=== PATIENT | male | born 1985 | race Caucasian/White ===

== ENCOUNTER 2021-02-24 17:37 | Emergency (ER) | payer OTHER, SELFPAY ==
[2021-02-24 17:40] VITALS: BP 156/97; PULSE 90; RESP 17; TEMP 36.9; O2SAT 97; BMI 26.3
--- NOTE | 2021-02-24 18:05 | EKG12_ITS ---
Test Reason : CP Blood Pressure : / mmHG Vent. Rate : 077 BPM Atrial Rate : 077 BPM P-R Int : 148 ms QRS Dur : 080 ms QT Int : 366 ms P-R-T Axes : 052 071 045 degrees QTc Int : 414 ms Normal sinus rhythm Normal ECG Confirmed by REGGIE UNDERWOOD, ATILIO ([id number]), movie editor LAVERN WRIGHT ([id number]) on 02/26/2021 10:56:29 AM Referred By: WOLF Confirmed By:ATILIO PAREDES MD
[2021-02-24 18:14] VITALS: O2SAT 100
--- NOTE | 2021-02-24 18:17 | ED.VIS.CHEST ---
HPI History of Present Illness Chief Complaint: Chest Pain Informant: patient Onset/Context/Timing Onset: Weeks (1-2) Activity at onset: sudden Timing: Continuous Quality: Positive for Burning Location: Left Parasternal and - (Epigastric area) Worsened By: - (Sitting) Relieved By: - (Standing) Associated Symptoms: Positive for Nausea, Diaphoresis, Lightheadedness, Acid Reflux and Palpitations; Negative for Vomiting, Dyspnea, Cough and Fever Narrative Narrative: Patient presents with chest pain that has been constant for the past 1 to 2 weeks. Patient was seen twice in the emergency department in [place] for this. Patient was started on hydrochlorothiazide. Patient followed up with his primary care physician who added lisinopril to the hydrochlorothiazide. Patient states this helped for a couple days and then he noticed that his blood pressure had started to increase again and he started having more chest pain. Patient states that it is over the left parasternal area and epigastric area. Patient states it is worse with sitting but better with standing. Patient admits to some nausea and occasional diaphoresis. Patient denies any vomiting. Patient denies any shortness of breath or cough. Patient admits to some mild lightheadedness. Patient also admits to some palpitations. Patient also admits to some reflux symptoms. CVD Risk Factors: Positive for Hypertension; Negative for Diabetes, Hypercholesterolemia, Family History 1' </=55 and Smoking PE Risk Factors: Negative for Recent Travel/Surgery, Recent Immobilization, Prior DVT or PE, Cancer and OCP + Smoking + >/=35 PFSH PFSH Medical History (Updated 02/24/21 @ 20:[address] Rudy Aviles DO) Hypertension Home Medications hydrocodone-acetaminophen 1 tab PO Q6H PRN PRN 3 Days #10 tablet 02/24/21 [Rx Last Taken Unknown] lisinopril-hydrochlorothiazide 1 tab PO DAILY 02/24/21 [History Last Taken Unknown] Allergy/AdvReac Type Severity Reaction Status Date / Time No Known Allergies Allergy Verified 02/24/21 17:39 Family History no significant family his no significant family history Surgical History no surgical history no surgical history Social History Smoking Status: Never smoker ROS ROS ED Constitutional Constitutional ED: Denies chills or fever(s) Eyes Eyes: Reports blurry vision; Denies diplopia ENT ENT ED: Denies rhinorrhea or sore throat Cardiovascular Cardiovascular: Reports chest pain, palpitations and racing heartbeat Respiratory/Chest Respiratory/Chest: Reports dyspnea; Denies cough Gastrointestinal Gastrointestinal: Reports nausea; Denies abdominal pain or vomiting Genitourinary Genitourinary ED: Denies dysuria or hematuria Musculoskeletal Musculoskeletal: Reports back pain; Denies neck pain Integumentary Denies abscess or rash Neurologic Neurologic: Denies headache(s) or weakness Allergic/Immunologic Allergic/Immunologic ED: Denies mouth swelling or urticaria EXAM Physical Exam Const Vital Signs: 02/24/21 17:40 02/24/21 17:54 02/24/21 18:14 Temperature 98.4 F Temperature Source Temporal Pulse Rate 90 Respiratory Rate 17 Respiratory Effort Normal Blood Pressure 156/97 H Blood Pressure Mean 116 Pulse Ox 97 100 Oxygen Delivery Method Room Air Room Air 02/24/21 18:36 02/24/21 20:06 Temperature Temperature Source Pulse Rate 81 64 Respiratory Rate 17 16 Respiratory Effort Blood Pressure 136/89 H 130/63 H Blood Pressure Mean 104 85 Pulse Ox 99 99 Oxygen Delivery Method Room Air Room Air Positive well nourished and well developed General Appearance ED: well developed HEENT normocephalic and atraumatic Eyes PERRL and EOMs intact bilaterally Neck supple and no JVD Chest Wall palpation of chest normal Resp normal respiratory effort and clear to auscultation bilaterally Effort and Inspection: Negative for respiratory distress Cardio regular rate, regular rhythm and no murmurs GI normal to inspection, nondistended, normoactive bowel sounds, soft to palpation, non-tender and non-distended Extremity normal to inspection General Extremety ED: Negative for edema or tenderness General Extremity: Negative for edema Neuro oriented x3, CN's II-XII intact bilaterally and no sensory deficits noted Sensorium / Orientation: awake and alert Motor Exam: strength 5/5 throughout Psych mental status grossly normal Heart Score History: Slightly/Non-Suspicious ECG: Normal Age: </= 45 years Risk Factors: 1 or 2 Risk Factors Troponin: </= Normal Limit Score: 1 MDM MDM MDM Narrative Medical decision making narrative: Patient was given aspirin here. EKG was obtained. On my interpretation, it showed a normal sinus rhythm with a rate of 77. [place] interval, QRS interval, and QTc intervals were all normal. [place] was normal. There are no acute ST or T wave changes. Portable 1 view chest x-ray was obtained. On my interpretation, lung currie are clear. There is normal cardiac silhouette. Bony thorax is normal. There is no acute process noted. Radiologist also interpreted the x-ray and agrees. CBC and basic metabolic profile were obtained and were within normal limits. D-dimer was normal. Initial high-sensitivity troponin was normal. 2-hour repeat high-sensitivity troponin was also normal. Patient was given a prescription for a short course of [place]. Patient was instructed to follow-up with his primary care physician for further evaluation. Patient understood and was agreeable with the plan. All questions were answered. Lab Data Attestation: I reviewed the patient's lab results. Labs: Laboratory Results - last 24 hr 02/24/21 02/24/21 02/24/21 18:15 18:15 18:15 WBC 9.8 RBC 5.13 Hgb 16.4 Hct 46.3 MCV 90.3 MCH 32.0 MCHC 35.4 RDW Std Deviation 39.5 RDW Coeff of Marcela 12.0 Plt Count 261 MPV 9.3 Immature Gran % (Auto) 0.400 Neut % (Auto) 66.3 Lymph % (Auto) 21.7 Sherman % (Auto) 7.4 Eos % (Auto) 3.7 Baso % (Auto) 0.5 Absolute Neuts (auto) 6.5 Absolute Lymphs (auto) 2.12 Nucleated RBC % 0 D-Dimer Quant (PE/DVT) <= 0.27 Sodium 136 Potassium 3.9 Chloride 98 Carbon Dioxide 32.0 Anion Gap 6 BUN 27 H Creatinine 1.05 Estim Creat Clear Calc 105.72 Est GFR (MDRD) Af Amer 102 Est GFR (MDRD) Non-Af 84 BUN/Creatinine Ratio 25.7 H Glucose 86 Calcium 9.3 Troponin I High Sens 11 02/24/21 20:01 WBC RBC Hgb Hct MCV MCH MCHC RDW Std Deviation RDW Coeff of Marcela Plt Count MPV Immature Gran % (Auto) Neut % (Auto) Lymph % (Auto) Sherman % (Auto) Eos % (Auto) Baso % (Auto) Absolute Neuts (auto) Absolute Lymphs (auto) Nucleated RBC % D-Dimer Quant (PE/DVT) Sodium Potassium Chloride Carbon Dioxide Anion Gap BUN Creatinine Estim Creat Clear Calc Est GFR (MDRD) Af Amer Est GFR (MDRD) Non-Af BUN/Creatinine Ratio Glucose Calcium Troponin I High Sens 12 Radiography Chest X-Ray - ED: 1 View, Read by ED Physician, Read by Radiologist and Normal Diagnostic Testing: Clinical Impression(s) from Imaging Studies Chest X-Ray 02/24/21 18:25 IMPRESSION: No acute radiographic abnormalities. Electronically Signed: Donavon Mackey MD at 19:08 EST Tel , Service support , EKG Initial EKG: Attestation: I personally reviewed and interpreted this EKG as follows: Interpretation: Sinus Rhythm (77) and No Acute Injury Pattern Prior EKG tracings: not available for review Discharge Plan Triage Chief Complaint: Chest Pain ED Provider: Rudy Aviles Dx/Rx/DC Orders Clinical Impression: Chest pain of unknown etiology Instructions: ED Chest Pain, Uncertain Cause Prescriptions: New hydrocodone-acetaminophen [hydrocodone-acetaminophen] 1 TABLET tablet 1 tab PO Q6H PRN PRN (Reason: Pain) 3 Days Qty: 10 RF: 0 No Action lisinopril-hydrochlorothiazide 20-12.5 mg tablet 1 tab PO DAILY RF: 0 Primary Care Provider: Katja Armijo NP Referrals: Katja Armijo NP, [employer] [facility] [Primary Care Provider] - 3-5 Days Disposition Disposition: Home, Self Care
[2021-02-24] MEDS: Aspirin 81 MG TAB.CHEW 324 MG PO (18:18)
[2021-02-24 18:25] LABS: Absolute Lymphocyte Count 2.12 X10^3/uL (0.83-4.51); Absolute Neutrophil Count 6.5 X10^3/uL (2.0-7.7); Basophil# 0.05 X10^3/uL; Basophil% 0.5 % (0-1); Eosinophil# 0.36 X10^3/uL; Eosinophils% 3.7 % (0-5); Hematocrit 46.3 % (40-54); Hemoglobin 16.4 g/dL (13.0-16.5); Lymphocyte # 2.12 X10^3/ul (0.83-4.51); Lymphocyte % 21.7 % (19-41); Mean Corp Hgb Conc 35.4 g/dL (32-36); Mean Corpuscular Volume 90.3 fL (80-94); Mean Platelet Vol. 9.3 fl (6.2-12.0); Monocyte# 0.72 X10^3/uL; Monocyte% 7.4 % (0-10); NRBC Flagged by Analyzer 0 % (0-5); Neutrophil # 6.49 X10^3/uL (2.7-7.7); Neutrophil % 66.3 % (47-70); Platelet Count 261 K/mm3 (150-450); RBC Distribution Width SD 39.5 fl (35.1-43.9); Red Blood Count 5.13 M/mm3 (4.6-6.2); White Blood Count 9.8 K/mm3 (4.4-11.0)
--- NOTE | 2021-02-24 18:25 | RAD_ITS ---
INDICATION: chest pain EXAMINATION/TECHNIQUE: X-RAY - XR Chest 1 View COMPARISON: None. FINDINGS: The lungs are clear. The cardiomediastinal silhouette is unremarkable. No pleural effusion or pneumothorax. No acute osseous abnormalities. RAD/Chest 1 View (Portable) IMPRESSION: No acute radiographic abnormalities. Electronically Signed: Donavon Mackey MD at 19:08 EST Tel , Service support ,
[2021-02-24 18:30] LABS: D-Dimer Quantitative (DVT/PE) <= 0.27 FEU/ug/m (0.27-0.49)
[2021-02-24] MEDS: Mag Hydrox/Al Hydrox/Simeth 30 ML UDC PO (18:33)
[2021-02-24 18:36] VITALS: BP 136/89; PULSE 81; RESP 17; O2SAT 99
[2021-02-24 18:47] LABS: Anion Gap 6 (5-15); BUN 27 mg/dL (7-18); BUN/Creat Ratio 25.7 RATIO (10-20); Calcium,Total 9.3 mg/dL (8.5-10.1); Chloride 98 mmol/L (98-107); Creatinine, Serum 1.05 mg/dL (0.70-1.30); EST Glomerular Filtration Rate 84 mL/min (>60); Est Glom Filt Rate - Afr Amer 102 mL/min (>60); Estimated Creatinine Clearance 105.72 ml/min; Glucose 86 mg/dL (74-106); Potassium 3.9 mmol/L (3.5-5.1); Sodium Level 136 mmol/L (136-145); Troponin-I HS 11 pg/mL (3.0-78.0)
[2021-02-24 20:06] VITALS: BP 130/63; PULSE 64; RESP 16; O2SAT 99
[2021-02-24 20:28] LABS: Troponin-I HS 12 pg/mL (3.0-78.0)
[2021-02-24 20:57] VITALS: BP 129/86; PULSE 69; RESP 15; O2SAT 98
== END 2021-02-24 20:58 | disposition home or self-care (01) ==
PROVIDERS: Emergency Provider Emergency Medicine; PCP Nurse Practitioner Family; Visit Provider Emergency Medicine
DX: R07.9 Chest pain, unspecified (principal); I10 Essential (primary) hypertension; Z79.899 Other long term (current) drug therapy
CPT/HCPCS: 71045; 80048; 84484; 85025; 85379; 93005; 99284; A4216

== ENCOUNTER 2022-05-03 09:47 | Emergency (ER) | payer OTHER, SELFPAY ==
[2022-05-03 09:49] VITALS: BP 197/103; PULSE 75; RESP 14; TEMP 36.6; O2SAT 99; BMI 27.0
--- NOTE | 2022-05-03 10:07 | US_ITS ---
STUDY: SCROTUM ULTRASOUND REASON FOR EXAM: Male, 36 years old. Left testicular pain and swelling. TECHNIQUE: Ultrasound evaluation of the scrotum was performed with color Doppler and static hunt-scale imaging. COMPARISON: None. FINDINGS: RIGHT TESTICLE INTRATESTICULAR: There is a normal size of the right testicle. The right testicle measures 4.6 cm x 2.6 cm x 2.7 cm. There is a homogenous echotexture. There is normal arterial and normal venous vascularity. There is no demonstrated right testicular mass or cyst. Scattered microcalcifications are seen in the right testicle. EXTRATESTICULAR: The epididymis is normal in size. The epididymis head measures 0.9 cm x 1.1 cm x 0.7 cm. There is normal vascularity of the epididymis. There is no demonstrated epididymal cystic structure. There is a small hydrocele. There is no demonstrated varicocele. There is no demonstrated extratesticular mass or cyst. LEFT TESTICLE INTRATESTICULAR: There is a normal size of the left testicle. The left testicle measures 4.5 cm x 2.6 x 3 cm. There is a homogenous echotexture. There is normal arterial and normal venous vascularity. There is no demonstrated left testicular mass or cyst. EXTRATESTICULAR: The epididymis is normal in size. The epididymis head measures 1 cm x 1.2 cm x 1.0 cm. There is normal vascularity of the epididymis. There is no demonstrated epididymal cystic structure. There is no demonstrated hydrocele. There are prominent extratesticular veins consistent with a varicocele. There is no demonstrated extratesticular mass or cyst. Microcalcifications are seen in the superior aspect of the left testicle. US/Testicular with Arterial Flow IMPRESSION: Small right hydrocele. Small left varicocele. Microcalcifications are seen in both testicles. Electronically Signed: John Oreilly MD at 12:11 EDT ,
[2022-05-03 10:44] LABS: Bacteria 0 SEEN /hpf (None Seen); Mucous, Urine 0 SEEN /hpf (<or=2+); Red Blood Cells-Urine 0 SEEN /hpf (0-5); Squamous Epithelial Cells - UA 0 SEEN /hpf (0-5); White Blood Cells 0 SEEN /hpf (0-5)
[2022-05-03 10:46] LABS: Color, Urine Yellow (Yellow); Glucose, Dipstick Normal (Normal); Ketone-Dipstick Negative (Negative); Leukocyte Esterase-Dipstick Negative /ul (Negative); Nitrite-Dipstick Positive (Negative); Occult Blood-Urine Negative /ul (Negative); Protein-Dipstick Negative (Negative); Specific Gravity, Urine 1.005 (1.002-1.030); Urine Clarity Clear (Clear); Urine Urobilinogen 1 mg/dl (Normal)
[2022-05-03 10:47] LABS: Urine Bilirubin Dipstick 1 mg/dL (Negative)
--- NOTE | 2022-05-03 10:51 | EX.ED.GUMALE ---
HPI History of Present Illness Chief Complaint: Male Pain/Injury Informant: patient Narrative Narrative: Patient is a 36-year-old male that denies any significant past medical history besides of chronic back pain presenting with worsening scrotal swelling and pain. Patient states he had some mild dysuria for the past month and some mild intermittent discomfort that is been pretty nonspecific. He denies any blood in his urine. He saw his primary care doctor couple days ago and was prescribed Pyridium. Told that his urine looks like he is dehydrated. Over the past 2 days he is now had increased left testicular swelling and pain. He did take ibuprofen for his pain prior to arrival. Denies any associated rash. Denies any new sexual partners. States he is in monogamous relationship with his spouse and is not concerned for STIs. Denies any abdominal pain, nausea, vomiting or any other symptoms. No other complaints at this time. [facility] Medical History Hypertension Testicular pain Home Medications hydrocodone-acetaminophen 5-325mg 5mg-325mg 1 tab PO Q6H PRN PRN Pain 3 days #10 TABLETS 02/24/21 [Rx Last Taken Unknown] lisinopril 20 mg-hydrochlorothiazide 12.5 mg tablet 1 tab PO DAILY 02/24/21 [History Last Taken Unknown] levofloxacin 500 mg tablet 500 mg PO DAILY #10 tabs 05/03/22 [Rx Last Taken Unknown] Allergy/AdvReac Type Severity Reaction Status Date / Time No Known Allergies Allergy Verified 05/03/22 09:48 Social History Smoking Status: Never smoker ROS ROS ED Constitutional Constitutional ED: Denies chills or fever(s) Cardiovascular Cardiovascular: Denies chest pain or palpitations Respiratory/Chest Respiratory/Chest: Denies cough Gastrointestinal Gastrointestinal: Reports other Details: No pain with defecation ; Denies abdominal pain, constipation, diarrhea, nausea or vomiting Genitourinary Genitourinary ED: Reports dysuria and other Details: Left testicular pain and swelling ; Denies hematuria or urinary frequency Musculoskeletal Musculoskeletal: Denies arthralgias or myalgias Integumentary Denies rash Neurologic Neurologic: Denies headache(s) or weakness Psychiatric Psychiatric: Denies anxiety EXAM Physical Exam Const Vital Signs: 05/03/22 09:49 05/03/22 12:51 Temperature 98 F Temperature Source Temporal Pulse Rate 75 Respiratory Rate 14 Blood Pressure 197/103 H 156/106 H Blood Pressure Mean 134 122 Pulse Ox 99 Oxygen Delivery Method Room Air Positive well nourished and well developed General Appearance ED: well developed and NAD; Negative for pallor HEENT Reports moist mucous membranes normocephalic and atraumatic Eyes PERRL Neck supple Resp normal respiratory effort and clear to auscultation bilaterally Cardio regular rate and regular rhythm GI non-tender and non-distended Inspection: Negative for abdominal distention Auscultation: normoactive bowel sounds Palpation: soft; Negative for tender or guarding no CVA tenderness Narrative: Normal circumcised penis. No drainage/discharge appreciated. Patient has scrotal swelling/edema of the left side. Mild tenderness to palpation diffusely. Normal lie. Extremity normal to inspection General Extremety ED: Negative for edema or tenderness General Extremity: Negative for edema Neuro oriented x3 and moves all extremities Psych mental status grossly normal Skin General Skin Exam: Negative for jaundice or pallor Lesions: no lesions Rashes: no rashes MDM MDM MDM Narrative Medical decision making narrative: Patient is evaluated for 2 days of increased testicular pain and swelling. He had mild dysuria for the past month. He is adamant that he is monogamous relationship and is not concerned for STDs. I counseled that I will test him for STDs but not treat. Urinalysis does show positive nitrates but otherwise largely normal. No hematuria. No elevated white blood cells or bacteria. On exam he does have asymmetric testicular swelling and mild tenderness. Ultrasound obtained to rule out torsion. This is negative and there is no acute findings on the imaging. He is incidentally found to have a small right hydrocele and small left variceal however not sure how this applies to his clinical presentation. I will treat him with a course of Levaquin empirically for his symptoms, physical exam and for possible subclinical epididymitis. Patient comfortable with this. He is given outpatient urology follow-up. He does not have any pain with defecation so low suspicion for prostatitis or colitis. Overall patient is well-appearing. Patient's vital signs are significant for hypertension however he states he does have whitecoat hypertension. Does show that he has been prescribed antihypertensives in the past. Repeat is improved and I do not think his presentation is consistent with a hypertensive emergency. Patient courage to follow-up outpatient for his blood pressure. He is counseled on return precautions. Discharged home in stable condition. Is given first dose of Levaquin in the ER. Declines further pain medicine in the ER. States he took ibuprofen prior to arrival. Lab Data Labs: Laboratory Results - last 24 hr 05/03/22 05/03/22 10:30 10:30 Urine Color Yellow Urine Clarity Clear Urine pH 7.0 Ur Specific [place] 1.005 Urine Protein Negative Urine Glucose (UA) Normal Urine Ketones Negative Urine Occult Blood Negative Urine Nitrite Positive H Urine Bilirubin 1 H Urine Urobilinogen 1 H Ur Leukocyte Esterase Negative Urine RBC 0 SEEN Urine WBC 0 SEEN Ur Squamous Epith Cells 0 SEEN Urine Bacteria 0 SEEN Urine Mucus 0 SEEN Chlam trachomat DNA PCR Negative N.gonorrhoeae DNA (PCR) Negative Radiography Diagnostic Testing: Clinical Impression(s) from Imaging Studies Testicular Ultrasound 05/03/22 10:07 IMPRESSION: Small right hydrocele. Small left varicocele. Microcalcifications are seen in both testicles. Electronically Signed: John Oreilly MD at 12:11 EDT Reading Location ID and State: [facility] / [place] , Service support , Differential Diagnosis Differential Diagnosis: Epididymitis Differential Diagnosis: Testicular torsion Why less likely: Not consistent with imaging Differential Diagnosis: STI? Why less likely: denies risk factors Discharge Plan Triage Chief Complaint: Male Pain/Injury ED Provider: Roxane Valenzuela Dx/Rx/DC Orders Clinical Impression: Left testicular pain, Hydrocele, left, Dysuria Instructions: ED Epididymitis, ED Hydrocele, Type Not Specified, ED Testicular Pain, Unclear Cause Prescriptions: New levofloxacin 500 mg tablet 500 mg PO DAILY Qty: 10 0RF No Action lisinopril-hydrochlorothiazide 20-12.5 mg tablet 1 tab PO DAILY Label Comments: TAKE 1 TABLET BY MOUTH ONCE DAILY hydrocodone-acetaminophen [hydrocodone-acetaminophen] 1 TABLET tablet 1 tab PO Q6H PRN PRN (Reason: Pain) 3 Days Qty: 10 0RF Primary Care Provider: Katja Armijo NP Referrals: Alexis Serna MD [Med Staff - Active Staff] - 3-5 Days if not improving Katja Armijo EXECUTIVE DIRECTOR OF MARKETING, EXEC[employer]IVE DIRECT[employer]ETING-[employer] [Primary Care Provider] - Activity Restrictions/Additional Instructions: Your ultrasound shows a small right hydrocele and a small left varicocele. These are nonspecific findings. No signs of infection, mass or other acute abnormalities. We will treat with a course of antibiotics. If you do not have improvement please follow-up with urology. Disposition Disposition: Home, Self Care Discharge Date/Time: 05/03/22 12:52
[2022-05-03] MEDS: levoFLOXacin 750 MG Tablet PO (12:49)
[2022-05-03 12:51] VITALS: BP 156/106
[2022-05-03 12:54] LABS: Chlamydia Trachomatis by PCR Negative (Negative); Neisserai gonorrhoeae by PCR Negative (Negative); Probe Check PASS; Sample Adequacy Control PASS; Specimen Processing Control PASS
== END 2022-05-03 12:52 | disposition home or self-care (01) ==
PROVIDERS: Emergency Provider Emergency Medicine; PCP Nurse Practitioner Family; Visit Provider Emergency Medicine
DX: N50.812 Left testicular pain (principal); N43.3 Hydrocele, unspecified; R30.0 Dysuria; G89.29 Other chronic pain; M54.9 Dorsalgia, unspecified
CPT/HCPCS: 76870; 81001; 87086; 87491; 87591; 93976; 99283; J7030; A4216

== ENCOUNTER 2023-12-21 10:21 | Emergency (ER) | payer OTHER, SELFPAY ==
[2023-12-21 10:22] VITALS: BP 146/93; PULSE 67; RESP 18; TEMP 36.9; O2SAT 99; BMI 25.0
[2023-12-21 10:24] VITALS: BP 135/91; PULSE 65; RESP 16; TEMP 36.9; O2SAT 97
[2023-12-21 11:25] LABS: Absolute Lymphocyte Count 0.35 X10^3/uL (0.83-4.51); Absolute Neutrophil Count 4.2 X10^3/uL (2.0-7.7); Basophil# 0.03 X10^3/uL; Basophil% 0.6 % (0-1); Lymphocyte # 0.35 X10^3/ul (0.83-4.51); Lymphocyte % 7.1 % (19-41); Mean Corp Hgb Conc 34.7 g/dL (32-36); Mean Corpuscular Hgb 31.9 pg (27.0-32.0); Mean Corpuscular Volume 91.9 fL (80-94); Mean Platelet Vol. 9.5 fl (6.2-12.0); Monocyte# 0.39 X10^3/uL; Monocyte% 7.9 % (0-10); NRBC Flagged by Analyzer 0 % (0-5); Neutrophil # 4.16 X10^3/uL (2.7-7.7); Neutrophil % 83.8 % (47-70); POSITIVE DIFFERENTIAL YES; Platelet Count 144 K/mm3 (150-450); RBC Distribution Width CV 12.5 % (11.6-14.6); RBC Distribution Width SD 41.9 fl (35.1-43.9); Red Blood Count 5.33 M/mm3 (4.6-6.2)
[2023-12-21 12:21] VITALS: BP 137/90; PULSE 66; RESP 16; O2SAT 100
[2023-12-21 12:56] VITALS: BP 137/90; PULSE 66; RESP 16; TEMP 36.5; O2SAT 100
[2023-12-23 16:10] LABS: Lyme Scn Total Ab w/Rflx Negative (Negative)
== END 2023-12-21 13:00 | disposition home or self-care (01) ==
PROVIDERS: Emergency Provider Emergency Medicine; PCP Nurse Practitioner Family; Visit Provider Emergency Medicine
DX: R50.9 Fever, unspecified (principal); M79.10 Myalgia, unspecified site; S70.362A Insect bite (nonvenomous), left thigh, initial encounter; W57.XXXA Bitten or stung by nonvenomous insect and other nonvenomous arthropods, initial encounter
CPT/HCPCS: 71046; 85025; 86618; 87631; 99283; A4216